=== PATIENT | female | born 1970 | race Caucasian/White ===

== ENCOUNTER 2017-12-02 21:26 | Emergency (ER) | payer OTHER ==
[2017-12-02] MEDS: HYDROCODONE/APAP (5/325) TAB PO (23:25)
[2017-12-02] MEDS ORDERED: LIDOCAINE 1% (MDV) 20 ML INJ SC (23:30)
[2017-12-02] MEDS: CLINDAMYCIN 300 MG INJ IM (23:37)
[2017-12-03] MEDS: HYDROCODONE/APAP (5/325) TAB PO (00:42)
== END 2017-12-03 00:48 | disposition home or self-care (01) ==
LOC: FTE 12-03 00:48
DX: L03.818 Cellulitis of other sites (principal); E11.9 Type 2 diabetes mellitus without complications; Z79.4 Long term (current) use of insulin; Z79.82 Long term (current) use of aspirin
CPT/HCPCS: 96372; 99284-25

== ENCOUNTER 2017-12-16 21:45 | Emergency (ER) | payer OTHER | END 2017-12-16 21:55 | disposition home or self-care (01) | LOC: E/R 21:55 | DX: L03.011 Cellulitis of right finger (principal); E11.9 Type 2 diabetes mellitus without complications; Z76.0 Encounter for issue of repeat prescription; Z79.82 Long term (current) use of aspirin; Z79.84 Long term (current) use of oral hypoglycemic drugs | CPT/HCPCS: 99283; Z7502 ==